=== PATIENT | male | born 1970 | race Caucasian/White ===

== ENCOUNTER → 2021-08-18 | Day surgery (SDC) | payer OTHER ==
[~2021-08-18] VITALS: Ht 182.9 cm; Wt 85.3 kg
[~2021-08-18] MED LIST: NORCO 5-325 TA1 EACH PO; ONDANSETRON ODT8 MG PO
[2021-08-18 08:20] LABS: HCT 42.8 % (42.0-52.0); HGB 14.3 g/dl (13.2-18.0); MCH 28.9 pg (25.0-31.0); MCHC 33.4 g/dL (32.0-36.0); MCV 86.5 fL (78.0-100.0); MPV 10.3 fL (6.0-9.5); RBC 4.95 M/uL (4.70-6.00); RDW 13.2 % (11.5-14.0); WBC 5.8 K/uL (4.0-10.5)
[2021-08-18 08:53] LABS: ALBUMIN 3.9 g/dL (3.4-5.0); BILIRUBIN - TOTAL 0.6 mg/dL (0.2-1.0); BUN/CREAT RATIO (CALC) 17.5 RATIO; CREATININE 1.14 mg/dL (0.67-1.17); GLOBULIN (CALCULATION) 3.8 g/dL; TOTAL PROTEIN 7.7 g/dL (6.4-8.2)
== END | disposition home or self-care (01) ==
LOC: FAS 07:50
PROVIDERS: Surgery
DX: K40.20 Bilateral inguinal hernia, without obstruction or gangrene, not specified as recurrent (principal); Z88.2 Allergy status to sulfonamides
CPT/HCPCS: 36415; 80053; C1727; C1781; J0690; J1100; J1170; J1885; J2250; J2405; J2704; J3010; J7120